=== PATIENT | female | born 2000 | race African-American/Black ===

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

== ENCOUNTER 2019-06-03 12:07 | Emergency (ER) | payer MEDICAID, OTHER ==
[~2019-06-03] VITALS: Ht 154.9 cm; Wt 45.0 kg
[2019-06-03 14:48] LABS: CLARITY URINE CLEAR (CLEAR); COLOR URINE YELLOW (YELLOW); KETONES URINE NEGATIVE (NEGATIVE); LEUKOCYTE ESTERASE URINE 2+ (NEGATIVE); NITRITE URINE NEGATIVE (NEGATIVE); OCCULT BLOOD URINE NEGATIVE (NEGATIVE); PH URINE 8.5 (4.5-8.0); PROTEIN URINE NEGATIVE (NEGATIVE); SPECIFIC GRAVITY URINE 1.007 (1.005-1.030); UROBILINOGEN URINE 0.2 E.U./dL (0.2-1.0)
[2019-06-03 16:51] LABS: BASOPHILS % 0.6 % (0.0-2.0); EOSINOPHILS % 1.7 % (0.0-5.0); HEMATOCRIT. 36.1 % (36.0-48.0); HEMOGLOBIN. 12.1 g/dL (12.0-16.0); LYMPHOCYTES % 24.9 % (20.0-50.0); MEAN CORPUSCULAR HEMOGLOBIN 27.9 pg (28.0-32.0); MEAN CORPUSCULAR VOLUME 83.1 fL (81.0-99.0); MEAN PLATELET VOLUME 7.5 fl (7.4-10.4); MONOCYTES % 7.3 % (2.0-8.0); NEUTROPHILS % 65.5 % (40.0-76.0); PLATELET 249 x1000/uL (130-400); RED BLOOD CELL COUNT 4.35 mill/uL (4.2-5.4)
[2019-06-03 16:54] LABS: CHLORIDE 106 mEq/L (98-107)
[2019-06-03 16:55] LABS: INR 1.1; PROTHROMBIN TIME 10.8 sec (9.6-11.0)
[2019-06-03 17:18] LABS: B-HCG QUANTITATIVE 12999 mIU/mL (<3)
[2019-06-03] MEDS ORDERED: METRONIDAZOLE 500MG TABLET PO ONE (17:30)
[2019-06-03 17:56] VITALS: BP 112/73
== END 2019-06-03 18:13 | disposition home or self-care (01) ==
LOC: ER 12:07
DX: N89.8 Other specified noninflammatory disorders of vagina (principal); Z98.890 Other specified postprocedural states
CPT/HCPCS: 36415; 76801; 81003; 81025; 84702; 87210; 87491; 87591; 99284

== ENCOUNTER 2019-06-06 14:48 | Emergency (ER) | payer MEDICAID ==
[~2019-06-06] VITALS: Ht 154.9 cm; Wt 40.0 kg
[2019-06-06 15:15] VITALS: BP 101/65
[2019-06-06 16:06] LABS: CLARITY URINE CLEAR (CLEAR); COLOR URINE YELLOW (YELLOW); KETONES URINE NEGATIVE (NEGATIVE); LEUKOCYTE ESTERASE URINE TRACE (NEGATIVE); NITRITE URINE NEGATIVE (NEGATIVE); OCCULT BLOOD URINE NEGATIVE (NEGATIVE); PH URINE 8.5 (4.5-8.0); PROTEIN URINE NEGATIVE (NEGATIVE); SPECIFIC GRAVITY URINE 1.015 (1.005-1.030); UROBILINOGEN URINE 0.2 E.U./dL (0.2-1.0)
[2019-06-06 16:15] LABS: *AMPHETAMINES SCREEN URINE NEGATIVE (NEGATIVE); *BARBITURATES SCREEN URINE NEGATIVE (NEGATIVE); *BENZODIAZEPINES SCREEN URINE NEGATIVE (NEGATIVE)
[2019-06-06 16:16] LABS: *COCAINE SCREEN URINE NEGATIVE (NEGATIVE); METHADONE URINE SCREEN NEGATIVE (NEGATIVE); OPIATES URINE SCREEN NEGATIVE (NEGATIVE); PHENCYCLIDINE URINE SCREEN NEGATIVE (NEGATIVE)
[2019-06-06 16:17] LABS: CANNABINOID URINE SCREEN PRESUMTIVE POSITIVE (NEGATIVE)
== END 2019-06-06 16:37 | disposition left against medical advice (07) ==
LOC: ER 14:48
DX: O26.892 Other specified pregnancy related conditions, second trimester (principal); R10.2 Pelvic and perineal pain; Z3A.00 Weeks of gestation of pregnancy not specified; Z98.890 Other specified postprocedural states
CPT/HCPCS: 80305; 81003; 81025; 99283

== ENCOUNTER 2019-08-20 12:50 | Emergency (ER) | payer MEDICAID ==
[~2019-08-20] VITALS: Ht 154.9 cm; Wt 49.9 kg
[2019-08-20] MEDS ORDERED: METOCLOPRAMIDE HCL 10MG/2ML VIAL IV ONE (16:15)
[2019-08-20] MEDS ORDERED: ACETAMINOPHEN 500MG TABLET PO ONE (16:15)
[2019-08-20] MEDS ORDERED: METOCLOPRAMIDE HCL 10MG TABLET PO ONE (16:30)
[2019-08-20 16:47] LABS: BASOPHILS % 0.4 % (0.0-2.0); EOSINOPHILS % 2.4 % (0.0-5.0); HEMATOCRIT. 34.6 % (36.0-48.0); HEMOGLOBIN. 11.9 g/dL (12.0-16.0); LYMPHOCYTES % 17.4 % (20.0-50.0); MEAN CORPUSCULAR HEMOGLOBIN 28.2 pg (28.0-32.0); MEAN PLATELET VOLUME 7.6 fl (7.4-10.4); NEUTROPHILS % 71.8 % (40.0-76.0); PLATELET 262 x1000/uL (130-400); RED BLOOD CELL COUNT 4.21 mill/uL (4.2-5.4); RED CELL DISTRIBUTION WIDTH 13.8 % (11.6-14.6)
[2019-08-20 16:57] LABS: CHLORIDE 107 mEq/L (98-107)
[2019-08-20] MEDS ORDERED: CEFTRIAXONE SODIUM 1 G/VIAL IM ONE (17:15)
[2019-08-20 17:19] LABS: B-HCG QUANTITATIVE 36466 mIU/mL (<3)
[2019-08-20 18:12] LABS: CLARITY URINE CLOUDY (CLEAR); COLOR URINE YELLOW (YELLOW); KETONES URINE NEGATIVE (NEGATIVE); LEUKOCYTE ESTERASE URINE NEGATIVE (NEGATIVE); NITRITE URINE NEGATIVE (NEGATIVE); OCCULT BLOOD URINE NEGATIVE (NEGATIVE); PH URINE >=9.0 (4.5-8.0); PROTEIN URINE NEGATIVE (NEGATIVE); SPECIFIC GRAVITY URINE 1.011 (1.005-1.030); UROBILINOGEN URINE 0.2 E.U./dL (0.2-1.0)
[2019-08-20 18:35] VITALS: BP 105/60
[2019-08-23 04:07] LABS: NEISSERIA GONORRHOEAE NAA Negative (Negative)
== END 2019-08-20 18:38 | disposition home or self-care (01) ==
LOC: ER 12:50
DX: O26.892 Other specified pregnancy related conditions, second trimester (principal); Z3A.16 16 weeks gestation of pregnancy
CPT/HCPCS: 36415; 76805; 80053; 81003; 81025; 84702; 85025; 86850; 86900; 86901; 87210; 87491; 87591; 96372; 99284; J0696; J8597

== ENCOUNTER → 2020-01-14 | Outpatient (CLI) | payer MEDICAID ==
[~2020-01-14] MED LIST: IBUP-2030 MT
== END | disposition home or self-care (01) ==
LOC: LAB 10:54
PROVIDERS: ATTEND Obstetrics & Gynecology
DX: Z01.818 Encounter for other preprocedural examination (principal); Z11.59 Encounter for screening for other viral diseases
CPT/HCPCS: C9803; U0003

== ENCOUNTER 2020-01-16 08:47 | Inpatient (IN) | payer MEDICAID ==
[~2020-01-16] VITALS: Ht 154.9 cm; Wt 64.4 kg
[2020-01-16] MEDS ORDERED: DEXT 5%/LR + PITOCIN 20UNITS/L 1,000 ML IV SCH ×2 (09:05→13:36)
[2020-01-16] MEDS ORDERED: NALOXONE HCL 0.4 MG/ML 1ML VIAL IM PRN (09:15)
[2020-01-16] MEDS ORDERED: CITRIC ACID/SODIUM CITRATE SOLN 30ML UDC PO NR (09:15)
[2020-01-16] MEDS ORDERED: METHYLERGONOVINE MALEATE 0.2 MG/ML IM PRN (09:15)
[2020-01-16] MEDS ORDERED: CARBOPROST TROMETHAMINE 250 MCG/ML AMPUL IM PRN (09:15)
[2020-01-16 10:13] LABS: BASOPHILS % 0.3 % (0.0-2.0); EOSINOPHILS % 1.7 % (0.0-5.0); HEMATOCRIT. 34.4 % (36.0-48.0); HEMOGLOBIN. 11.7 g/dL (12.0-16.0); LYMPHOCYTES % 22.7 % (20.0-50.0); MEAN CORPUSCULAR HEMOGLOBIN 28.5 pg (28.0-32.0); MEAN CORPUSCULAR VOLUME 83.8 fL (81.0-99.0); MEAN PLATELET VOLUME 8.7 fl (7.4-10.4); MONOCYTES % 9.5 % (2.0-8.0); NEUTROPHILS % 65.8 % (40.0-76.0); PLATELET 227 x1000/uL (130-400); RED CELL DISTRIBUTION WIDTH 13.8 % (11.6-14.6)
[2020-01-16] MEDS: LACTATED RINGERS 1,000 ML IV SCH ×2 (10:15→10:22)
[2020-01-16 10:25] LABS: PARTIAL THROMBOPLASTIN TIME 27.9 sec (23.4-31.0); PROTHROMBIN TIME 10.2 sec (9.6-11.0)
[2020-01-16 10:27] LABS: CLARITY URINE CLEAR (CLEAR); COLOR URINE YELLOW (YELLOW); KETONES URINE NEGATIVE (NEGATIVE); LEUKOCYTE ESTERASE URINE NEGATIVE (NEGATIVE); NITRITE URINE NEGATIVE (NEGATIVE); OCCULT BLOOD URINE NEGATIVE (NEGATIVE); PROTEIN URINE NEGATIVE (NEGATIVE); SPECIFIC GRAVITY URINE 1.006 (1.005-1.030)
[2020-01-16 10:32] LABS: *COCAINE SCREEN URINE NEGATIVE (NEGATIVE); CANNABINOID URINE SCREEN NEGATIVE (NEGATIVE); METHADONE URINE SCREEN NEGATIVE (NEGATIVE); OPIATES URINE SCREEN NEGATIVE (NEGATIVE); PHENCYCLIDINE URINE SCREEN NEGATIVE (NEGATIVE)
[2020-01-16 10:33] LABS: *AMPHETAMINES SCREEN URINE NEGATIVE (NEGATIVE); *BARBITURATES SCREEN URINE NEGATIVE (NEGATIVE); *BENZODIAZEPINES SCREEN URINE NEGATIVE (NEGATIVE)
[2020-01-16 11:48] LABS: HEPATITIS B SURFACE ANTIGEN NEGATIVE
[2020-01-16] MEDS ORDERED: FENTANYL CITRATE/PF 50MCG/ML 2ML VIAL ONE (12:16)
[2020-01-16] MEDS ORDERED: MORPHINE SULFATE/PF 1MG/ML 10ML AMP ONE (12:16)
[2020-01-16] MEDS ORDERED: SODIUM CHLORIDE 0.9% 10ML VIAL ONE (12:17)
[2020-01-16] MEDS ORDERED: OXYTOCIN 10 UNITS/ML 1ML ONE ×2 (12:17→12:45)
[2020-01-16] MEDS ORDERED: CEFAZOLIN SODIUM 1000MG/VIAL ONE (12:17)
[2020-01-16] MEDS ORDERED: ONDANSETRON HCL 4MG/2ML INJ ONE (12:17)
[2020-01-16] MEDS ORDERED: METOCLOPRAMIDE HCL 10MG/2ML VIAL ONE (12:17)
[2020-01-16] MEDS ORDERED: ONDANSETRON HCL 4MG/2ML INJ IV PRN ×2 (13:45→19:00)
[2020-01-16] MEDS ORDERED: HEMORRHOIDAL SUPP PR PRN (13:45)
[2020-01-16] MEDS ORDERED: RHO(D) IMMUNE GLOBULIN 300 MCG/SYR IM PRN (13:45)
[2020-01-16] MEDS ORDERED: IBUPROFEN 800MG TABLET PO PRN (13:45)
[2020-01-16] MEDS ORDERED: IBUPROFEN 400MG TABLET PO PRN (13:45)
[2020-01-16] MEDS ORDERED: LANOLIN OINT 7GM TUBE TOP PRN (13:45)
[2020-01-16] MEDS ORDERED: BISACODYL 10MG SUPP PR PRN (13:45)
[2020-01-16] MEDS ORDERED: PHYTONADIONE 1MG/0.5ML AMP IM SCH (14:30)
[2020-01-16] MEDS ORDERED: HEPATITIS B VIRUS VACCINE-PF 10 MCG/0.5 VIAL IM SCH (14:30)
[2020-01-16] MEDS ORDERED: ERYTHROMYCIN BASE 0.5% OPHTH OINT UD BOTHEYE SCH (14:30)
[2020-01-16 16:00] VITALS: BP 109/63
[2020-01-16 16:30] VITALS: BP 121/75
[2020-01-16 17:20] VITALS: BP 115/69
[2020-01-16] MEDS: MAGNESIUM/ALUMINUM HYDROXIDE/SIMETHICONE 30ML UDC PO SCH (17:30)
[2020-01-16] MEDS: SIMETHICONE 80MG TABLET CHEW PO SCH (18:00)
[2020-01-16] MEDS ORDERED: MEPERIDINE HCL/PF 25MG/ML CPJ IV PRN (19:00)
[2020-01-16] MEDS ORDERED: KETOROLAC 30MG/ML VIAL IV PRN (19:00)
[2020-01-16] MEDS ORDERED: METOCLOPRAMIDE HCL 10MG/2ML VIAL IV PRN (19:00)
[2020-01-16] MEDS ORDERED: DOCUSATE SODIUM 100MG CAPSULE PO SCH (21:00)
[2020-01-16 21:05] VITALS: BP 113/71
[2020-01-17 00:05] VITALS: BP 104/55
[2020-01-17] MEDS ORDERED: KETOROLAC 30MG/ML VIAL IV PRN (03:15)
[2020-01-17] MEDS: DIPHENHYDRAMINE 50MG/ML VIAL IV PRN ×2 (03:47→08:21)
[2020-01-17 04:00] VITALS: BP 114/76
[2020-01-17 07:11] LABS: BASOPHILS % 0.4 % (0.0-2.0); EOSINOPHILS % 1.5 % (0.0-5.0); HEMATOCRIT. 30.9 % (36.0-48.0); HEMOGLOBIN. 10.6 g/dL (12.0-16.0); LYMPHOCYTES % 14.6 % (20.0-50.0); MEAN CORPUSCULAR HEMOGLOBIN 28.6 pg (28.0-32.0); MEAN CORPUSCULAR VOLUME 83.2 fL (81.0-99.0); MEAN PLATELET VOLUME 8.3 fl (7.4-10.4); MONOCYTES % 7.8 % (2.0-8.0); NEUTROPHILS % 75.7 % (40.0-76.0); PLATELET 195 x1000/uL (130-400); RED BLOOD CELL COUNT 3.72 mill/uL (4.2-5.4); RED CELL DISTRIBUTION WIDTH 13.7 % (11.6-14.6)
[2020-01-17] MEDS: SIMETHICONE 80MG TABLET CHEW PO SCH ×4 (08:20→21:08)
[2020-01-17] MEDS: MAGNESIUM/ALUMINUM HYDROXIDE/SIMETHICONE 30ML UDC PO SCH ×4 (08:20→21:00)
[2020-01-17] MEDS: FERROUS SULFATE 325MG TABLET PO SCH ×3 (08:21→18:01)
[2020-01-17] MEDS: PRENATAL VIT/FE FUMARATE/FA TABLET PO SCH (08:21)
[2020-01-17] MEDS ORDERED: IBUPROFEN 400MG TABLET PO PRN (12:00)
[2020-01-17 14:00] VITALS: BP 135/88
[2020-01-17] MEDS: IBUPROFEN 800MG TABLET PO PRN (17:59)
[2020-01-17 20:30] VITALS: BP 107/62
[2020-01-18] MEDS: IBUPROFEN 800MG TABLET PO PRN ×2 (05:14→09:29)
[2020-01-18 05:15] VITALS: BP 126/85
[2020-01-18 07:45] VITALS: BP 110/61
[2020-01-18] MEDS ORDERED: IBUP-2030 MT (07:50)
[2020-01-18] MEDS: FERROUS SULFATE 325MG TABLET PO SCH (09:27)
[2020-01-18] MEDS: PRENATAL VIT/FE FUMARATE/FA TABLET PO SCH (09:27)
[2020-01-18] MEDS: SIMETHICONE 80MG TABLET CHEW PO SCH (09:28)
[2020-01-18] MEDS: ACETAMINOPHEN WITH CODEINE 300/30MG TABLET PO PRN ×2 (09:40→14:09)
[2020-01-18 14:00] VITALS: BP 110/66
== END 2020-01-18 17:25 | disposition home or self-care (01) | DRG 540 ==
LOC: 8 EST LDRP 08:47 → 8EST 17:23
PROVIDERS: ADMIT Obstetrics & Gynecology; ATTEND Obstetrics & Gynecology
PROC: 10D00Z1 Extraction of Products of Conception, Low, Open Approach (ICD-10-PCS; principal; 2020-01-16)
DX: O34.211 Maternal care for low transverse scar from previous cesarean delivery (principal); O99.02 Anemia complicating childbirth; D62 Acute posthemorrhagic anemia; Z3A.39 39 weeks gestation of pregnancy; Z37.0 Single live birth
CPT/HCPCS: 36415; 80305; 81003; 85025; 86592; 86703; 86762; 86850; 86900; 87340; 88307; J0690; J1200; J1885; J2274; J2405; J2590; J2765; J3010; J7120

== ENCOUNTER 2020-05-08 10:50 | Emergency (ER) | payer MEDICAID, OTHER ==
[~2020-05-08] VITALS: Ht 154.9 cm; Wt 57.0 kg
[2020-05-08] MEDS ORDERED: ONDANSETRON HCL 4MG/2ML INJ IV STA (11:16)
[2020-05-08] MEDS ORDERED: SODIUM CHLORIDE 0.9% 500 ML IV ONE (11:30)
[2020-05-08 12:07] LABS: BASOPHILS % 0.6 % (0.0-2.0); EOSINOPHILS % 5.2 % (0.0-5.0); HEMATOCRIT. 34.4 % (36.0-48.0); HEMOGLOBIN. 11.3 g/dL (12.0-16.0); MEAN CORPUSCULAR HEMOGLOBIN 26.8 pg (28.0-32.0); MEAN CORPUSCULAR VOLUME 81.6 fL (81.0-99.0); MEAN PLATELET VOLUME 7.8 fl (7.4-10.4); MONOCYTES % 10.7 % (2.0-8.0); NEUTROPHILS % 41.5 % (40.0-76.0); PLATELET 213 x1000/uL (130-400); RED BLOOD CELL COUNT 4.22 mill/uL (4.2-5.4); RED CELL DISTRIBUTION WIDTH 13.3 % (11.6-14.6)
[2020-05-08 12:11] LABS: CHLORIDE 108 mEq/L (98-107)
[2020-05-08 12:13] LABS: CLARITY URINE CLEAR (CLEAR); COLOR URINE YELLOW (YELLOW); KETONES URINE NEGATIVE (NEGATIVE); LEUKOCYTE ESTERASE URINE TRACE (NEGATIVE); NITRITE URINE NEGATIVE (NEGATIVE); OCCULT BLOOD URINE NEGATIVE (NEGATIVE); PH URINE 5.5 (4.5-8.0); PROTEIN URINE NEGATIVE (NEGATIVE); SPECIFIC GRAVITY URINE 1.016 (1.005-1.030); UROBILINOGEN URINE 0.2 E.U./dL (0.2-1.0)
[2020-05-08 12:20] LABS: HCG SCREEN NEGATIVE
[2020-05-08] MEDS ORDERED: IOHEXOL-300 100 ML BOTTLE ONE (13:17)
[2020-05-08 14:25] VITALS: BP 115/69
== END 2020-05-08 14:25 | disposition home or self-care (01) ==
LOC: ER 10:50
DX: R10.13 Epigastric pain (principal); N39.0 Urinary tract infection, site not specified; R19.7 Diarrhea, unspecified; R11.10 Vomiting, unspecified; D64.9 Anemia, unspecified; Z98.890 Other specified postprocedural states
CPT/HCPCS: 36415; 74177; 80053; 81003; 81025; 83690; 84703; 85025; 93005; 96374; 99285; J2405; J7030; Q9967

== ENCOUNTER 2020-10-06 21:15 | Emergency (ER) | payer OTHER ==
[~2020-10-06] VITALS: Ht 154.9 cm; Wt 56.0 kg
[2020-10-06 21:51] VITALS: BP 101/58
[2020-10-06] MEDS ORDERED: ACETAMINOPHEN 325MG TABLET PO ONE (23:15)
[2020-10-07 00:06] LABS: BASOPHILS % 0.5 % (0.0-2.0); HEMATOCRIT. 34.5 % (36.0-48.0); HEMOGLOBIN. 11.7 g/dL (12.0-16.0); LYMPHOCYTES % 40.2 % (20.0-50.0); MEAN CORPUSCULAR VOLUME 79.5 fL (81.0-99.0); MEAN PLATELET VOLUME 7.6 fl (7.4-10.4); MONOCYTES % 6.4 % (2.0-8.0); NEUTROPHILS % 46.9 % (40.0-76.0); PLATELET 252 x1000/uL (130-400); RED BLOOD CELL COUNT 4.34 mill/uL (4.2-5.4); RED CELL DISTRIBUTION WIDTH 13.4 % (11.6-14.6)
[2020-10-07 00:12] LABS: CHLORIDE 107 mEq/L (98-107)
[2020-10-07 01:10] LABS: CLARITY URINE CLEAR (CLEAR); COLOR URINE YELLOW (YELLOW); KETONES URINE NEGATIVE (NEGATIVE); LEUKOCYTE ESTERASE URINE NEGATIVE (NEGATIVE); NITRITE URINE NEGATIVE (NEGATIVE); OCCULT BLOOD URINE NEGATIVE (NEGATIVE); PROTEIN URINE NEGATIVE (NEGATIVE); SPECIFIC GRAVITY URINE 1.016 (1.005-1.030); UROBILINOGEN URINE 0.2 E.U./dL (0.2-1.0)
[2020-10-07] MEDS ORDERED: FAMO-135 MT (01:42)
[2020-10-07] MEDS ORDERED: FAMOTIDINE 20MG TABLET PO ONE (01:45)
[2020-10-07] MEDS ORDERED: POTASSIUM CHLORIDE 20MEQ TABLET SR PO ONE (01:45)
== END 2020-10-07 03:23 | disposition home or self-care (01) ==
LOC: ER 21:15
DX: R10.12 Left upper quadrant pain (principal); M54.5 Low back pain; Z98.890 Other specified postprocedural states
CPT/HCPCS: 36415; 80053; 81003; 81025; 85025; 99283

== ENCOUNTER 2020-12-05 13:09 | Emergency (ER) | payer OTHER ==
[~2020-12-05] VITALS: Ht 154.9 cm; Wt 48.0 kg
[~2020-12-05 13:09] MED LIST changes: +FAMO-135 MT
[2020-12-05] MEDS ORDERED: KETOROLAC 60MG/2ML VIAL IM ONE (14:00)
[2020-12-05 15:42] LABS: BASOPHILS % 0.8 % (0.0-2.0); EOSINOPHILS % 5.3 % (0.0-5.0); HEMATOCRIT. 32.7 % (36.0-48.0); LYMPHOCYTES % 29.4 % (20.0-50.0); MEAN CORPUSCULAR HEMOGLOBIN 27.1 pg (28.0-32.0); MEAN CORPUSCULAR VOLUME 80.7 fL (81.0-99.0); MEAN PLATELET VOLUME 7.7 fl (7.4-10.4); MONOCYTES % 7.7 % (2.0-8.0); NEUTROPHILS % 56.8 % (40.0-76.0); PLATELET 224 x1000/uL (130-400); RED BLOOD CELL COUNT 4.05 mill/uL (4.2-5.4); RED CELL DISTRIBUTION WIDTH 12.7 % (11.6-14.6)
[2020-12-05 15:49] LABS: CHLORIDE 110 mEq/L (98-107)
[2020-12-05 15:59] LABS: CREATINE KINASE 61 IU/L (26-192); HCG SCREEN NEGATIVE
[2020-12-05] MEDS ORDERED: MORPHINE SULFATE 10 MG/ML CPJ IM ONE (16:15)
[2020-12-05] MEDS ORDERED: IBUP-2029 MT (17:32)
[2020-12-05] MEDS ORDERED: CYCL10TA7 MT (17:32)
[2020-12-05 18:03] VITALS: BP 106/67
== END 2020-12-05 18:22 | disposition home or self-care (01) ==
LOC: ER 15:56
DX: S20.212A Contusion of left front wall of thorax, initial encounter (principal); Z98.890 Other specified postprocedural states; V49.40XA Driver injured in collision with unspecified motor vehicles in traffic accident, initial encounter; Y93.89 Activity, other specified; Y92.89 Other specified places as the place of occurrence of the external cause; Y99.8 Other external cause status
CPT/HCPCS: 36415; 71045; 71250; 80053; 82550; 84703; 85025; 93005; 96372; 99285; J1885; Z7610; J2270

== ENCOUNTER 2021-01-27 21:36 | Emergency (ER) | payer MEDICAID, OTHER ==
[~2021-01-27] VITALS: Ht 154.9 cm; Wt 48.0 kg
[~2021-01-27 21:36] MED LIST changes: +CYCL10TA7 MT; +IBUP-2029 MT
[2021-01-27 21:56] VITALS: BP 115/64
[2021-01-27] MEDS ORDERED: CEFTRIAXONE SODIUM 1 G/VIAL IM ONE (23:45)
[2021-01-27] MEDS ORDERED: LIDOCAINE HCL 1% 20ML VIAL (Pyxis) INJ INFIL ONE (23:45)
[2021-01-27] MEDS ORDERED: CEFTRIAXONE SODIUM 500 MG/VIAL IM ONE (23:45)
[2021-01-28] MEDS ORDERED: AZITHROMYCIN 500 MG TABLET PO ONE (00:15)
[2021-01-28 01:04] LABS: CLARITY URINE CLEAR (CLEAR); COLOR URINE YELLOW (YELLOW); KETONES URINE NEGATIVE (NEGATIVE); LEUKOCYTE ESTERASE URINE 3+ (NEGATIVE); NITRITE URINE NEGATIVE (NEGATIVE); OCCULT BLOOD URINE NEGATIVE (NEGATIVE); PH URINE 5.5 (4.5-8.0); PROTEIN URINE NEGATIVE (NEGATIVE); SPECIFIC GRAVITY URINE 1.016 (1.005-1.030); UROBILINOGEN URINE 0.2 E.U./dL (0.2-1.0)
[2021-01-28] MEDS ORDERED: NITR-87 MT (03:17)
[2021-01-31 04:08] LABS: NEISSERIA GONORRHOEAE NAA Negative (Negative)
== END 2021-01-28 03:45 | disposition home or self-care (01) ==
LOC: ER 21:36
DX: N76.0 Acute vaginitis (principal); N39.0 Urinary tract infection, site not specified; Z20.2 Contact with and (suspected) exposure to infections with a predominantly sexual mode of transmission
CPT/HCPCS: 81003; 87086; 87210; 87491; 87591; 96372; 99283; J0696; J3490; Z7610

== ENCOUNTER 2021-02-15 14:31 | Emergency (ER) | payer OTHER ==
[~2021-02-15] VITALS: Ht 154.9 cm; Wt 48.0 kg
[~2021-02-15 14:31] MED LIST changes: +NITR-87 MT
[2021-02-15] MEDS ORDERED: ACETAMINOPHEN 325MG TABLET PO STA (15:13)
[2021-02-15] MEDS ORDERED: SODIUM CHLORIDE 0.9% 1,000 ML IV ONE (15:15)
[2021-02-15] MEDS ORDERED: ALBU6.7H9 INH (16:30)
[2021-02-15] MEDS ORDERED: ACET-2708 MT (16:30)
[2021-02-15 16:47] VITALS: BP 122/70
== END 2021-02-15 16:48 | disposition home or self-care (01) ==
LOC: ER 14:31
DX: U07.1 COVID-19 (principal); Z98.890 Other specified postprocedural states; Z79.899 Other long term (current) drug therapy
CPT/HCPCS: 71045; 99284; C9803; J7030; U0003; U0005